=== PATIENT | female | born 2000 | race Two or more races ===

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

== ENCOUNTER 2021-02-21 14:43 | Emergency (ER) | payer OTHER, SELFPAY ==
[2021-02-21 16:10] VITALS: BP 114/63; PULSE 84; RESP 16; TEMP 36.9; O2SAT 98; BMI 25.7
--- NOTE | 2021-02-21 16:13 | HMH.EDUTC ---
[facility] Disposition Clinical Impression: Unprotected sex Disposition: Home, Self-Care Condition on Discharge: Good Instructions: Common Discomforts and Bodily Changes During Additional Instructions: We will call you with the results of your serum test. Follow up with you primary care provider. GO TO THE ER FOR ANY WORSENING SYMPTOMS OR CONCERNS Referrals: La Frazier PA [Primary Care Provider] - Time of Disposition: 16:19 Medical Decision Making - Medical Records Medical records reviewed: No: I reviewed the patient's medical records. - Freddy Inquiry Pt receiving controlled substance: No Vital Signs: 02/21/21 16:10 02/21/21 16:33 02/21/21 16:36 Temperature 98.4 F 98.4 F 98.4 F Temperature Source Oral Oral Pulse Rate 84 84 Pulse Rate [Right Radial] 84 Respiratory Rate 16 16 16 Blood Pressure 114/63 114/63 Blood Pressure [Right Arm] 114/63 Blood Pressure Mean [Right Arm] 80 Blood Pressure Source [Right Arm] Automatic Cuff Blood Pressure Position [Right Arm] Sitting 02 Sat by Pulse Oximetry 98 Oxygen Delivery Method Room Air Room Air Room Air - Lab Data Lab Results 02/21/21 16:25: Serum HCG, Qual Negative [facility] HPI - General Stated complaint: test Time Seen by Provider: 02/21/21 16:13 - History of Present Illness Provider Complaint: She states that she had unprotected sex around 4 days ago. She is worried that she is . Her period is not late yet. She denies any other symptoms also . - Related Data Previous Rx's Medication Instructions Recorded norgestimate-ethinyl estradiol 1 tab PO DAILY #28 tab 04/27/19 0.18 mg/0.215mg/0.25mg-35 mcg(28)tablet risperidone 2 mg tablet 2 mg PO BID #60 tab 12/30/20 hydroxyzine pamoate 50 mg capsule 50 mg PO TID #90 cap 02/02/21 risperidone 3 mg tablet 3 mg PO HS #30 tab 02/02/21 sertraline 100 mg tablet 100 mg PO DAILY #30 tab 02/02/21 Allergies Allergy/AdvReac Type Severity Reaction Status Date / Time carrot Allergy Mild Verified 12/30/20 09:06 codeine Allergy Mild Hives Verified 12/30/20 09:06 nut - unspecified Allergy Mild Verified 12/30/20 09:06 [facility] History - Hepatitis A Screen Attestation statement:: This patient has been screened for Hepatitis A risk factors. I have reviewed the patient's past medical history: Yes Medical History: Reports:: Anxiety, Depression Denies:: Diabetes Mellitus Type 1, Diabetes Mellitus Type 2 Laterality Cases: Bilateral: Tonsillectomy Amputation: No Fractures: No - Social History Smoking Status: Current every day smoker Tobacco Type: cigarettes # Packs/Day (cigarettes): 1 Alcohol Intake: never Substance Use Type: marijuana, former substance user, denies use Occupational Status: unemployed, other, student Comment: used cannabis in [place]; none currently - Psychiatric History Pschychiatric History:: Reports:: Anxiety, Depression Family Hx:: No significant family history ROS Obtained: Yes All systems reviewed & no additional complaints - Constitutional Constitutional: Reports system reviewed and no additional complaints, except as docu - Eyes Eyes: Reports system reviewed and no additional complaints, except as docu - ENT Ears, Nose, Mouth, and Throat: Reports system reviewed and no additional complaints, except as docu - Cardiovascular Cardiovascular: Reports system reviewed and no additional complaints, except as docu - Respiratory Respiratory: Reports system reviewed and no additional complaints, except as docu - Gastrointestinal Gastrointestingal: Reports: system reviewed and no additional complaints, except as docu Physical Exam - General General appearance: alert, in no apparent distress - Head Head exam: atraumatic, normocephalic, normal inspection - Eye Eye exam: Present: normal appearance, PERRL, EOMI - ENT ENT exam: Present: normal exam, normal oropharynx, mucous membranes moist,
[2021-02-21 16:27] VITALS: BMI 25.7
[2021-02-21 16:33] VITALS: BP 114/63; PULSE 84; RESP 16; TEMP 36.9; O2SAT 98
[2021-02-21 16:36] VITALS: BP 114/63; PULSE 84; RESP 16; TEMP 36.9; O2SAT 98
[2021-02-21 16:55] LABS: HCG Qualitative, Serum Negative (Negative)
[2021-02-22 09:45] LABS: UTC Pregnancy Test, Urine Negative (Negative)
== END 2021-02-21 16:37 | disposition home or self-care (01) ==
PROVIDERS: Emergency Provider Nurse Practitioner Family; PCP Physician Assistant
DX: Z32.02 Encounter for pregnancy test, result negative (principal); F41.8 Other specified anxiety disorders; F17.210 Nicotine dependence, cigarettes, uncomplicated
CPT/HCPCS: 81025; 84703; 99203; G0463